=== PATIENT | male | born 1930 | race African-American/Black ===

== ENCOUNTER 2016-12-09 12:28 | Emergency (ER) | payer MEDICARE, OTHER ==
[~2016-12-09] VITALS: Ht 175.3 cm; Wt 75.0 kg
[~2016-12-09 12:28] MED LIST: ATOR40TA70 PO; BENA40TA3 PO; CARV12.545 PO; CLOP75TA33 PO
[2016-12-09 13:23] LABS: BASOPHILS % 0.5 % (0.0-2.0); EOSINOPHILS % 0.7 % (0.0-5.0); HEMATOCRIT. 35.8 % (42.0-52.0); HEMOGLOBIN. 11.9 g/dL (14.0-18.0); LYMPHOCYTES % 22.5 % (20.0-50.0); MEAN CORPUSCULAR HEMOGLOBIN 29.1 pg (28.0-32.0); MEAN CORPUSCULAR VOLUME 87.4 fL (80.0-94.0); MONOCYTES % 8.6 % (2.0-8.0); NEUTROPHILS % 67.7 % (40.0-76.0); PLATELET 122 x1000/uL (130-400)
[2016-12-09 13:29] LABS: CHLORIDE 105 mEq/L (98-107)
[2016-12-09 13:30] LABS: INR 1.1; PROTHROMBIN TIME 11.5 sec (9.4-11.6)
[2016-12-09 13:37] LABS: CARBON DIOXIDE 30 mEq/L (21-32)
[2016-12-09 15:18] LABS: CLARITY URINE CLOUDY (CLEAR); COLOR URINE YELLOW (YELLOW); GLUCOSE URINE NEGATIVE (NEGATIVE); KETONES URINE NEGATIVE (NEGATIVE); LEUKOCYTE ESTERASE URINE NEGATIVE (NEGATIVE); NITRITE URINE NEGATIVE (NEGATIVE); OCCULT BLOOD URINE NEGATIVE (NEGATIVE); PH URINE 5.5 (4.5-8.0); PROTEIN URINE NEGATIVE (NEGATIVE); SPECIFIC GRAVITY URINE 1.021 (1.005-1.030)
[2016-12-09 16:01] VITALS: BP 115/71
== END 2016-12-09 16:03 | disposition home or self-care (01) ==
LOC: ER 13:54 → CANBEDREQ 17:41
DX: I95.1 Orthostatic hypotension (principal); I11.9 Hypertensive heart disease without heart failure; D64.9 Anemia, unspecified; D72.819 Decreased white blood cell count, unspecified; R73.9 Hyperglycemia, unspecified; J44.9 Chronic obstructive pulmonary disease, unspecified; I25.10 Atherosclerotic heart disease of native coronary artery without angina pectoris; Z95.0 Presence of cardiac pacemaker; Z88.6 Allergy status to analgesic agent; Z88.2 Allergy status to sulfonamides
CPT/HCPCS: 36415; 71010; 80053; 81001; 83605; 85025; 85610; 87040; 87086; 93005; 99285